=== PATIENT | male | born 1965 | race Two or more races ===

== ENCOUNTER 2019-06-18 05:55 | Day surgery (SDC) | payer OTHER ==
[2019-06-18] MEDS ORDERED: RECTICARE30 GM TOP (08:31)
[2019-06-18] MEDS ORDERED: PERCOCET 5-3251 EACH PO (08:31)
== END 2019-06-18 14:15 | disposition home or self-care (01) ==
LOC: CIR.AMB 05:55
DX: K62.82 Dysplasia of anus (principal); A63.0 Anogenital (venereal) warts

== ENCOUNTER 2024-12-21 08:30 | Day surgery (SDC) | payer OTHER ==
[2024-12-16 13:00] LABS: HEMATOCRIT 48.2 % (39.0-48.0); HEMOGLOBIN 16.2 g/dL (13-16.00); MEAN CELL VOLUME 96.3 fL (80.0-100.00); MEAN CORPUSCULAR HEMOGLOBIN 32.3 pg (27.00-32.0); MEAN CORPUSCULAR HGB CONC 33.6 g/dl (32.0-36.0); PLATELET COUNT 333 K/uL (150-450); RED BLOOD COUNT 5.01 M/uL (4.00-6.00); RED CELL DISTRIBUTION WIDTH 13.5 % (11.5-14.5)
[2024-12-16 13:03] LABS: URINE APPEARANCE Clear; URINE BILIRRUBIN Negative (NEGATIVE); URINE BLOOD Negative; URINE COLOR Yellow; URINE GLUCOSE Negative (NEGATIVE); URINE KETONE Negative (NEGATIVE); URINE LEUKOCYTE Negative; URINE NITRATE Negative; URINE PROTEIN Negative (NEGATIVE); URINE UROBILINOGEN 0.2 E.U./dl
[2024-12-16 13:10] LABS: URINE BACTERIA 7.3 uL (0.0-1933); URINE RBC 4.2 uL (0.0-20.8)
[2024-12-16 13:19] LABS: URINE CAST 0.29 uL (0.0-1.40); URINE EPITHELIAL CELLS 0.7 uL (0.0-38.8); URINE WBC 0.6 uL (0.0-23.2)
[2024-12-16 13:50] LABS: INR 0.95; PARTIAL THROMBOPLASTIN TIME 31.3 SECONDS (22.0-34.0); PROTHROMBIN TIME 10.4 SECONDS (9.0-11.5)
[2024-12-16 14:30] LABS: ALBUMIN 4.2 gm/dL (3.4-5.0); BILIRUBIN TOTAL 0.54 mg/dL (0.3-1.2); CALCIUM 9.9 mg/dL (8.5-10.1); CREATININE SERUM 1.26 mg/dL (0.70-1.30); GFR 58.58; GLOBULINA 3.6 G/DL (2.4-3.5); POTASSIUM 4.72 mEq/L (3.5-5.1); TOTAL PROTEIN 7.8 gm/dL (6.4-8.2)
[~2024-12-21 08:30] MED LIST: PERCOCET 5-3251 EACH PO; RECTICARE30 GM TOP
[2024-12-21] MEDS ORDERED: HEMOSTATIC MATRIX 1 KIT KIT TOP ONE (09:00)
[2024-12-21] MEDS ORDERED: LIDOCAINE HCL 1%/EPINEPHRINE 20ML VIAL IJ ONE (09:00)
[2024-12-21] MEDS ORDERED: BUPIVACAINE HCL/MPF 0.5% 30ML VIAL ONE (09:00)
[2024-12-21] MEDS ORDERED: POVIDONE-IODINE 118 ML BOTT TOP ONE (09:00)
[2024-12-21] MEDS ORDERED: METRONIDAZOLE/SODIUM CHLORIDE 500 MG/100 ML PIGGYBACK IV ONE (09:04)
[2024-12-21] MEDS ORDERED: CEFTRIAXONE SODIUM 2,000 MG VIAL ONE (09:04)
[2024-12-21] MEDS ORDERED: DIBUCAINE 30 GM TUBE ONE (09:09)
[2024-12-21] MEDS ORDERED: PERCOCET 5-3251 EACH PO (11:22)
[2024-12-21] MEDS ORDERED: RECTICARE30 GM TOP (11:22)
== END 2024-12-21 15:05 | disposition home or self-care (01) ==
LOC: CIR.AMB 08:30
PROVIDERS: ATTEND Surgery
DX: D12.9 Benign neoplasm of anus and anal canal (principal); A63.0 Anogenital (venereal) warts